=== PATIENT | male | born 2000 | race African-American/Black ===

== ENCOUNTER 2019-06-10 16:56 | Emergency (ER) | payer MEDICAID, SELFPAY ==
[2019-06-10 16:57] VITALS: BP 119/74; PULSE 63; RESP 16; TEMP 37.2; BMI 23.6
--- NOTE | 2019-06-10 18:02 | ED.DCSUM_ITS ---
History of Present Illness Chief Complaint: Laceration Informant: Patient Onset: Today Context: Sudden Onset Narrative: Patient is a 18-year-old male with no pertinent past medical history presenting with laceration to his right index finger and right middle finger. Patient is playing basketball and he was coming down from a jump he cut his hand is on some railing. He had immediate pain and bleeding. He has no associated numbness, tingling. The bleeding has not stopped. He denies any other complaints or injuries at this time. This happened approximately 3 hours ago. Patient does not know when his last tetanus was. Past Medical History - Allergies and Home Meds Allergies/Adverse Reactions: Allergies No Known Allergies Allergy (Verified 06/10/19 16:57) Primary Care Physician: NOT,DEFINED [NON-STAFF] - Surgical History: - - Exploratory laparoscopy Smoking Status: Never smoker Review of Systems All systems negative except as indicated Skin: Reports: Wounds - Laceration to right index and middle finger Physical Exam Vital Signs/Narrative: Vital Signs Temp Pulse Resp BP 06/10/19 16:57 99.0 F 63 16 119/74 Inital Vital Signs reviewed: Yes General: Well nourished, Well developed, No Acute Distress Head: Normocephalic, Atraumatic Eyes: Perrl, EOMI ENT: Moist mucous membranes, No rhinorrhea Neck: Supple, Nontender Cardiovascular: Regular rate, Regular rhythm, No murmurs Respiratory: No distress, CTA bilaterally Abdomen: Soft, Nontender Back: Nontender, Normal Inspection Extremities: Nontender, No edema Skin: Normal color, - - 3 cm irregular laceration over the pad of the right index finger extending from the top of the nail down the middle of the pad, closely approximated but gapes with pressure applied, full-thickness. 1 cm superficial linear laceration over the pad of the right middle finger Neurological: Alert, Oriented x3, Cranial nerves II-XII grossly intact, Normal Strength, Normal Sensation Psychological: Normal affect, Normal Mood Diagnostic/Tx/Re-eval - Medical Decision Making Patient has laceration to his right index finger as well as a superficial laceration to his middle finger. Tetanus is updated. Laceration repair perf ormed. See procedure note. Patient counseled on generalized wound care. He is instructed to have his sutures evaluated for removal in 10 days. Patient is counseled on signs and symptoms requiring return to the emergency room. Patient verbalizes agreement and understand this plan. Patient discharged home in stable and improved condition. Procedures - Lacerations No standard instances Length: 1.18 in Depth: Sub Q Shape: Linear Prep: Sterile Conditions, Chlorhexadine Laceration repair: Digital block, Lidocaine, Skin sutures Irrigated (ml): 500 - 5 minutes under running tap water Number of Sutures/Matt: 5 Suture Information: Ethilon, Simple, 4-0 Comment: Tolerated procedure well, no immediate complications. ED Disposition - Plan for ED Patient: Disposition: Home or Assisted Living Diagnosis: Laceration of right index finger, Need for tetanus booster Instructions: LACERATION, Hand Referrals: NOT,DEFINED [NON-STAFF] - Additional Instructions: Follow-up with your primary care doctor in 10 days for wound check and likely suture removal. You cannot be seen by her primary care doctor he can return to the emergency room or go to any urgent care. Take Tylenol and/or Motrin as needed for pain. Return to the ER if you develop fever, worsening pain, pussy drainage or worsening redness of the finger. Try to keep the wound clean and dry. He can apply bacitracin ointment to it if you desire.
[2019-06-10] MEDS: Diphth,Pertuss(Acell),Tet Vac 0.5 ML Vial IM (18:21)
== END 2019-06-10 19:07 | disposition home or self-care (01) ==
PROVIDERS: Emergency Provider Emergency Medicine
DX: S61.210A Laceration without foreign body of right index finger without damage to nail, initial encounter (principal); S61.212A Laceration without foreign body of right middle finger without damage to nail, initial encounter; W45.8XXA Other foreign body or object entering through skin, initial encounter; Y93.67 Activity, basketball; Y99.8 Other external cause status
CPT/HCPCS: 12002; 90471; 90715; 99283